=== PATIENT | female | born 1985 | race Caucasian/White ===

== ENCOUNTER 2016-09-01 19:47 | Emergency (ER) | payer OTHER ==
[2016-09-01 20:53] LABS: BILIRUBIN NEGATIVE (NEGATIVE); BLOOD NEGATIVE Ery/uL (NEGATIVE); CLARITY CLEAR (CLEAR); COLOR YELLOW (YELLOW); GLUCOSE (U) NORMAL (NORMAL); KETONE (U) NEGATIVE (NEGATIVE); LEUKOCYTES NEGATIVE Leu/uL (NEGATIVE); NITRITE NEGATIVE (NEGATIVE); PROTEIN NEGATIVE (NEGATIVE); SPECIFIC GRAVITY 1.025 (1.001-1.030); UROBILINOGEN 0.2 mg/dL (0.2-1.0)
[2016-09-01 21:04] LABS: BASOPHIL 0.5 % (0-2); EOSINOPHIL 0 % (0-5); HCT 36.2 % (37.0-47.0); HGB 12.2 g/dl (12.5-16.0); LYMPHOCYTE 9.9 % (15-48); MCH 27.3 pg (25.0-31.0); MCHC 33.7 g/dL (32.0-36.0); MONOCYTE 3.9 % (0-12); MPV 9.3 fL (6.0-9.5); NEUTROPHIL 85.7 % (41-80); PLT 398 K/uL (150-400); RBC 4.47 M/uL (4.20-5.40); RDW 14.5 % (11.5-14.0); WBC 8.6 K/uL (4.0-10.5)
[2016-09-01 21:05] LABS: AMPHETAMINES NEGATIVE (NEGATIVE); BENZODIAZEPINES NEGATIVE (NEGATIVE); COCAINE NEGATIVE (NEGATIVE); MARIJUANA (THC) POSITIVE (NEGATIVE)
[2016-09-01 21:06] LABS: BARBITURATES NEGATIVE (NEGATIVE); METHADONE NEGATIVE (NEGATIVE); TRICYCLIC ANTIDEPRESSANT NEGATIVE (NEGATIVE)
[2016-09-01 21:27] LABS: ALBUMIN 4.4 g/dL (3.5-5.0); BILIRUBIN - TOTAL 0.2 mg/dL (0.1-1.0); CREATININE 0.6 mg/dL (0.5-1.0); GLOBULIN (CALCULATION) 2.6 g/dL (2.2-4.2)
== END 2016-09-02 00:30 | disposition home or self-care (01) ==
LOC: FER 19:47
PROVIDERS: Emergency Medicine
DX: G40.909 Epilepsy, unspecified, not intractable, without status epilepticus (principal); D32.9 Benign neoplasm of meninges, unspecified; R82.90 Unspecified abnormal findings in urine; F17.210 Nicotine dependence, cigarettes, uncomplicated; Z88.5 Allergy status to narcotic agent; Z88.8 Allergy status to other drugs, medicaments and biological substances; Z79.899 Other long term (current) drug therapy
CPT/HCPCS: 36415; 70450; 71010; 80053; 80305; 81003; 85025; 87088; G0480; J1953; J2060; J2405

== ENCOUNTER 2016-09-07 14:04 | Emergency (ER) | payer OTHER ==
[2016-09-07 14:43] LABS: BASOPHIL 0.3 % (0-2); EOSINOPHIL 0.2 % (0-5); HCT 37.1 % (37.0-47.0); HGB 12.6 g/dl (12.5-16.0); LYMPHOCYTE 19.7 % (15-48); MCH 26.8 pg (25.0-31.0); MCV 78.8 fL (78.0-100.0); MONOCYTE 11.5 % (0-12); MPV 9.8 fL (6.0-9.5); NEUTROPHIL 68.3 % (41-80); PLT 404 K/uL (150-400); RBC 4.71 M/uL (4.20-5.40); RDW 14.4 % (11.5-14.0); WBC 9.8 K/uL (4.0-10.5)
[2016-09-07 15:05] LABS: ALBUMIN 4.7 g/dL (3.5-5.0); BILIRUBIN - TOTAL 0.4 mg/dL (0.1-1.0); CREATININE 0.7 mg/dL (0.5-1.0); POTASSIUM 3.8 mmol/L (3.5-5.1); TOTAL PROTEIN 7.7 g/dL (6.4-8.3)
[2016-09-07 15:06] LABS: ACETAMINOPHEN (TYLENOL) < 5.0 ug/mL (10.0-30.0); ALCOHOL (ETOH) MEDICAL 16 mg/dL; SALICYLATE 7 ug/mL (0-300)
[2016-09-07 16:51] LABS: AMPHETAMINES POSITIVE (NEGATIVE); BARBITURATES NEGATIVE (NEGATIVE); BENZODIAZEPINES POSITIVE (NEGATIVE); COCAINE NEGATIVE (NEGATIVE); MARIJUANA (THC) POSITIVE (NEGATIVE); METHADONE NEGATIVE (NEGATIVE); TRICYCLIC ANTIDEPRESSANT NEGATIVE (NEGATIVE)
== END 2016-09-07 20:05 | disposition home or self-care (01) ==
LOC: FER 14:04
PROVIDERS: Internal Medicine
DX: F15.10 Other stimulant abuse, uncomplicated (principal); F12.10 Cannabis abuse, uncomplicated; G40.909 Epilepsy, unspecified, not intractable, without status epilepticus; Z88.0 Allergy status to penicillin; Z88.1 Allergy status to other antibiotic agents; Z88.8 Allergy status to other drugs, medicaments and biological substances; Z79.899 Other long term (current) drug therapy
CPT/HCPCS: 36415; 80053; 80305; 85025; G0480